=== PATIENT | female | born 1965 | race Caucasian/White ===

== ENCOUNTER → 2017-06-21 | Outpatient (CLI) | payer OTHER ==
[~2017-06-21] MED LIST: ALPR1TAB3 PO; BUPR300T PO; DESO1TAB5 PO; DESO1TAB7 PO; DOXY100C PO; FEXO15TA PO; FLON0.053; GLUC500T4 PO; HYDR-3580 PO; LAMO150T PO; LAMO200T PO; LEVO50TA4 PO; LEVO75TA3 PO; MONT10TA2 PO; MONT10TA4 PO; MULT-65 PO; SACC1CAP3 PO; TAB-TAB PO; TOPI1TAB36 PO; VIBRYD PO; VIIB20TA PO; WELLTAB39 PO
[2017-06-21 14:57] LABS: INTERNATIONAL NORMALIZED RATIO 0.9 RATIO; PROTHROMBIN TIME - PATIENT 10.2 SEC (9.8-11.6)
[2017-06-21 15:10] LABS: BICARBONATE 24.4 MEQ/L (21.0-32.0); POTASSIUM 4.2 MEQ/L (3.5-5.1)
--- NOTE | 2017-06-21 15:17 | RADRPT ---
EXAM DATE/TIME: 06/21/2017 14:57 [facility] COMPARISON: No previous studies available for comparison. INDICATIONS : Evaluate for pneumonia, pneumothorax or communicable disease. MEDICAL HISTORY : None. SURGICAL HISTORY : None. ENCOUNTER: Initial ACUITY: 1 day PAIN SCORE: 0/10 LOCATION: Bilateral chest FINDINGS: PA and lateral views of the chest demonstrate the lungs to be symmetrically aerated without evidence of mass, infiltrate or effusion. The cardiomediastinal contours are unremarkable. Osseous structure s are intact. CONCLUSION: No acute disease. Tony Freeman MD FACR on June 21, 2017 at 15:15 Board Certified Radiologist. This report was verified electronically.
[2017-06-21 15:48] LABS: BLOOD, URINE MOD (NEG); CALCIUM OXALATE CRYSTALS,URINE MOD /hpf; COMMENT (UR) CULT NOT INDICATED; CULTURE IF INDICATED CULT NOT INDICATED; GLUCOSE,URINE NEG (NEG); KETONE, URINE NEG (NEG); MUCUS URINE FEW /lpf (OCC); NITRITE,URINE NEG (NEG); PH, URINE 5.5 (5.0-8.5); SQUAMOUS EPITHELIAL CELL URINE 12 /hpf (0-5); URINE COLOR YELLOW (YELLW/STRAW)
--- NOTE | 2017-06-22 20:54 | EKG ---
Date Performed: 06/21/2017 Time Performed: 14:16:08 PTAGE: 52 years EKG: Sinus rhythm NORMAL ECG PREVIOUS TRACING : 07/01/2013 08.42 Compared to prior tracing no significant change DOCTOR: Reji De La Cruz Interpretating Date/Time 06/22/2017 20:52:58
== END ==
LOC: CPRE 13:38
PROVIDERS: ATTEND Orthopaedic Surgery
DX: Z01.810 Encounter for preprocedural cardiovascular examination (principal); Z01.811 Encounter for preprocedural respiratory examination; Z01.812 Encounter for preprocedural laboratory examination; S83.242D Other tear of medial meniscus, current injury, left knee, subsequent encounter; X58.XXXD Exposure to other specified factors, subsequent encounter
CPT/HCPCS: 36415; 71020; 80048; 81001; 85610; 93005

== ENCOUNTER → 2017-06-30 | Day surgery (SDC) | payer OTHER ==
--- NOTE | 2017-06-15 18:39 | MH ---
cc: CHANTAL WRIGHT DATE OF ADMISSION 06/30/2017 ADMISSION DIAGNOSIS 1. Medial meniscus tear of the left knee 2. Insufficiency fracture medial tibial plateau left knee 3. Chondromalacia left knee 4. Chondromalacia patellae left knee 5. Pain left knee, 6. Gait disturbance. HISTORY OF PRESENT ILLNESS The patient is a 52-year-old white female who has experienced pain of her left knee of almost six weeks duration. As a result of cleaning activities in anticipation of selling her home and scrubbing her floor, she became symptomatic with discomfort generalized about the lateral aspect of her left knee. She conformed to modified activities which included ice application, ibuprofen and elevation. Her symptoms became more pronounced for which she was evaluated in the emergency room of [facility] where a Doppler ultrasound study was negative for evidence of deep venous thrombosis. The patient was prescribed tramadol for pain management and placed into a knee immobilizer. She was also utilizing a cane for support. She was subsequently seen by the undersigned physician in the early part of May of this year and at that time reported ongoing pain about her left knee. She did report at that time that she had undergone arthroscopic surgery of her right knee in years past. Her overall clinical picture including x-ray studies were without evidence of any acute bony abnormality. The patient was diagnosed as having a tenosynovitis for which she was encouraged to continue with conservative management which included receiving a steroid injection and being prescribed a Medrol Dosepak. She was followed on an outpatient basis thereafter. Unfortunately, she remained symptomatic with pain about her left knee that was interfering with all weightbearing activities and, thus, she elected to proceed with further diagnostic evaluation which included an MRI scan the results of which identified a subchondral insufficiency fracture of the medial tibial plateau associated with a large radial tear involving the posterior horn of the medial meniscus, chondromalacia of the patellae and the medial femoral condyle was also noted, a benign exostosis originating from the posterior medial tibial plateau without any substantial cartilaginous cap or surrounding edema was also reported. The patient continued to have pain about her left knee that was limiting all ambulatory activities and requiring her to use a cane as a full-time ambulatory aid. She progressed to taking hydrocodone for pain management and expressed a desire to proceed with a more definitive course of treatment. The involvement of arthroscopic surgery was outlined in detail for which the patient expressed her desire to proceed accordingly and, in compliance with her wishes, she has currently been scheduled for admission in order that the above be accomplished. PAST MEDICAL HISTORY, HOSPITALIZATIONS AND SURGERIES 1. Excision of an ovarian cyst. 2. Arthroscopic surgery of the right knee x2 3. Bunionectomy of the left foot 4. Bilateral LASIK surgery of the eyes. Medical illnesses 1. Depression 2. Hypothyroidism. 3. Anxiety disorder. MEDICATIONS Current - 1. Princess daily. 2. Wellbutrin daily. 3. A control pill daily 4. daily. 5. Flonase 1 spray to each nostril nightly. 6. Topamax daily. 7. Vibryd daily. 8. Thyroid supplement daily. 9. Multivitamin tablet daily 10. Allergy shots every three weeks. ALLERGIES The patient denies any known drug allergies but has multiple environmental allergies to include CAT HAIR, DUST, TREES AND GRASS. REVIEW OF SYSTEMS History of migraine headaches. No seizure or syncope. Sinus congestion. No epistaxis. Auditory acuity intact. No tinnitus. No bleeding gums or dysphagia. Denies cough, shortness of breath, upper respiratory infection, pneumonia or tuberculosis. She has had history of bronchitis in the past. No angina or heart disease. Her appetite is good. Bowel movements are regular. No hepatitis, gallbladder disease, ulcers or hemorrhoids. She has had previous urinary tract infection. No kidney stones. Fracture of the little toe of the left foot treated non-operatively and psychiatric intervention for depression and anxiety disorder. Remaining review of systems is unremarkable and noncontributory. FAMILY HISTORY The patient is single. Both parents are living. Her mother is a diabetic. She has one brother of uncertain health. A sister who is noted to be an alcoholic and drug abuser. Family history is otherwise positive for hypertension, diabetes and brain cancer. SOCIAL HISTORY The patient completed a master's degree in education. She is a high school mathematics teacher. She admits to a 20-year history of tobacco averaging approximately one pack per week. Ethanol consumption on a very limited and social basis. PHYSICAL EXAMINATION VITAL SIGNS: Height 5 feet 10 inches, weight 297 pounds. GENERAL: An alert, oriented and responsive 52-year-old white female who sits quietly upon the examination table with no obvious distress. HEENT: Pupils are equally round and reactive to light. Extraocular movements full. Sclerae clear. External nares clear. External auditory canals clear. Dental intact. Mucous membranes pink and moist. Pharynx clear. NECK: Supple. Active range of motion without appreciable pain. Carotid palpable bilaterally. Trachea midline. Thyroid without enlargement. LUNGS: Clear to auscultation and percussion. No CVA tenderness. No discomfort throughout the dorsal lumbar spine. HEART: Regular rhythm. No murmur or gallop. ABDOMEN: Soft, nontender. Bowel sounds are present. PELVIC: Per primary care physician. EXTREMITIES: Left knee - There is medial and lateral joint line tenderness without palpable deformity. Apprehension and compression sign are negative. Limited and guarded mobility in the 0 to 30 degree range of motion with discomfort at the extremes of mobility. No sensation of crepitation or instability. No collateral ligamentous laxity. Catherine test and drawer sign negative. Pivot shift and Tim sign are difficult to assess secondary to apprehension demonstrated by the patient. Distal sensory grossly intact. Antalgic gait with cane support. NEUROLOGIC: Cranial nerves II-XII grossly intact. IMPRESSION 1. Medial meniscus tear left knee 2. Insufficiency fracture medial tibial plateau left knee 3. Chondromalacia left knee 4. Chondromalacia patellae left knee 5. Pain left knee 6. Gait disturbance. PLAN Arthroscopic surgery and possible arthrotomy left knee. The nature of the planned surgical procedure, the potential complications and risks associated, the expectations of surgery and the consent form were thoroughly reviewed with the patient prior to admission to the hospital. Asmita has indicated her full understanding regarding all of the above and given consent to proceed with treatment as outlined. Medical evaluation and clearance for surgery completed by her primary care physician, Dr. Stephanie Bryson. MD KARSTEN Cheatham/SA /5:44 PM /6:07 PM
[~2017-06-30] VITALS: Ht 179.1 cm; Wt 130.0 kg
[~2017-06-30] MED LIST changes: +*morphine SULFATE 8 MG/ML PERIprocedure ONLY ONE; +ACETAMINOPHEN 1000 MG/100 ML 100 ML IV ONE; +ACETAMINOPHEN/HYDROcodone 325 MG/5 MG TAB PO PRN; +CHLORHEXIDINE GLUCONATE 2 % 1 PACK (2 CLOTHS) TOPICAL PRN; -DESO1TAB7 PO; +FAMOTIDINE 20 MG/2 ML VIAL ONE; -FLON0.053; +GLYCOPYRROLATE 0.2 MG/ML VIAL IV ONE; +INSULIN HUMAN REGULAR 1,000 UNITS/10 ML VIAL SQ PRN; +KETOROLAC TROMETHAMINE 60 MG/2 ML (IM) VIAL IM ONE; +LACTATED RINGER'S 1000 ML INJ 1,000 ML IV ONE; +LACTATED RINGER'S 1000 ML IV PRN; -LAMO200T PO; -LEVO50TA4 PO; +LIDOCAINE 2%/EPINEPHrine PF 1:200,000 20ML SDV ONE; +LIDOCAINE HCL 1% PF 5 ML AMPULE OTHER ONE; +LIDOCAINE HCL 2% 50 ML VIAL ONE; +METOPROLOL TARTRATE 25 MG TAB PO PRN; +MIDAZOLAM HCL 2 MG/2 ML VIAL IV ONE; -MONT10TA2 PO; +MORPHINE SULFATE 10 MG/ML INJ IM PRN; +NEOSTIGMINE 3 MG/3 ML SYR IV ONE; +ONDANSETRON HCL 4 MG/2 ML VIAL IV PUSH ONE; +POVIDONE IODINE 5% (ANTISEPSIS KIT) 4 APPLICATIONS EACH NARE PRN; +POVIDONE IODINE 7.5% SCRUB 118 ML BOTTLE TOPICAL SCH; +PROMETHAZINE INJ 25 MG/ML VIAL IM PRN; +PROPOFOL 200 MG/20 ML AMP IV ONE; +ROCURONIUM INJ 50 MG/5 ML SYRINGE IV PUSH ONE; +SODIUM CHLORID 0.9% 500 ML IV PRN; -TAB-TAB PO; +TRIAMCINOLONE ACETONIDE 40 MG/ML VIAL ONE; +TRIAMCINOLONE ACETONIDE/PF 40 MG/ML OPTH VIAL ONE; -VIBRYD PO; -WELLTAB39 PO; +ceFAZolin 2 GM PREMIX 50 ML IV SCH
--- NOTE | 2017-06-30 09:37 | MP ---
cc: CHANTAL WRIGHT DATE OF SURGERY: 06/30/2017 PREOPERATIVE DIAGNOSIS Medial meniscus tear, left knee. Insufficiency fracture medial tibial plateau, left knee. Chondromalacia, left knee. Chondromalacia patellae, left knee. Pain, left knee. Gait disturbance. POSTOPERATIVE DIAGNOSIS Medial meniscus tear, left knee. Insufficiency fracture medial tibial plateau, left knee. Chondromalacia, left knee. Chondromalacia patellae, left knee. Pain, left knee. Gait disturbance. Synovial plica, left knee. PROCEDURE Partial medial meniscectomy, left knee. Resection of synovial plica, left knee. Chondroplasty of the patellofemoral joint, left knee. SURGEON Brandan. ANESTHESIA General endotracheal. FORMAT Following induction of satisfactory general anesthesia by endotracheal intubation as completed per the Department of Anesthesia, examination of the left knee revealed a satisfactory range of motion but no appreciable ligamentous instability. The extremity proper was positioned in the medical surgical tech knee echeverria, prepped with Betadine solution and draped into a sterile field in the routine manner. Prior to initiation of the actual procedure the standard timeout protocol was completed. All parameters were appropriately addressed and confirmed by operating room personnel. Arthroscopic instrumentation was introduced through a stab wound utilizing cannula with sharp and blunt trocar, the inflow irrigation by way of the medial suprapatellar portal, the arthroscope through a lateral parapatellar portal and a blunt probe through a medial parapatellar portal. Examination of the suprapatellar pouch revealed a prominent synovial plica extending across the entire border of the suprapatellar region in a medial to lateral orientation. Within the patellofemoral articulation mild to moderate degenerative changes consistent with chondromalacia were appreciated. Attention was redirected to the medial compartment. A radial tear was identified involving the posterior horn of the medial meniscus. There were adjacent chondromalacia changes along the articular surface, especially involving the femoral condyle. Proliferative synovium extended into the intercondylar region. The anterior cruciate ligament was identified and noted to be intact. Within the lateral compartment there was no significant evidence of internal derangement. The lateral meniscus appeared intact with continuity of the articular surfaces of both the femoral condyle and tibial plateau. Attention was redirected to the medial compartment. Utilizing both biting suction forceps as well as a 3.8 mm Saber resector, a partial medial meniscectomy was accomplished as well as debridement along the articular surface of the femoral condyle. Limited debridement within the intercondylar region was completed. Attention was thus redirected to the patellofemoral articulation and the suprapatellar region. The previously identified synovial plica was resected in a subtotal manner as well as a generalized chondroplasty of the patellofemoral articulation. Upon completion of same the joint space was thoroughly lavaged and suctioned dry. An intraarticular Kenalog-lidocaine injection was completed. Steri-Strips were applied to the portal sites over which Xeroform gauze and a bulky dry sterile dressing were placed. Anesthesia was discontinued and the patient thus transferred to a hospital stretcher and returned to the recovery room in satisfactory condition having tolerated her operative procedure well. Estimated blood loss was less than 10 cc. MD KARSTEN Cheatham/BT /8:47 AM /9:23 AM
[2017-06-30 10:10] VITALS: RESP 18; O2SAT 96
[2017-06-30 10:25] VITALS: BP 103/59
== END | disposition home or self-care (01) ==
LOC: HSDC 05:18
PROVIDERS: ATTEND Orthopaedic Surgery
DX: S83.242A Other tear of medial meniscus, current injury, left knee, initial encounter (principal); X58.XXXA Exposure to other specified factors, initial encounter; Y93.E5 Activity, floor mopping and cleaning; Y92.019 Unspecified place in single-family (private) house as the place of occurrence of the external cause; M94.262 Chondromalacia, left knee; M22.42 Chondromalacia patellae, left knee; M67.52 Plica syndrome, left knee; R26.9 Unspecified abnormalities of gait and mobility; F32.9 Major depressive disorder, single episode, unspecified; E03.9 Hypothyroidism, unspecified; F41.9 Anxiety disorder, unspecified; F17.210 Nicotine dependence, cigarettes, uncomplicated; E66.9 Obesity, unspecified; Z68.41 Body mass index [BMI] 40.0-44.9, adult; Z79.899 Other long term (current) drug therapy
CPT/HCPCS: 01400; 29875; 29881; J0131; J0690; J1885; J2250; J2270; J2405; J2710; J3010; J3300; J3301; J7120

== ENCOUNTER → 2017-10-17 | Outpatient (CLI) | payer OTHER ==
[~2017-10-17] MED LIST changes: -*morphine SULFATE 8 MG/ML PERIprocedure ONLY ONE; -ACETAMINOPHEN 1000 MG/100 ML 100 ML IV ONE; -ACETAMINOPHEN/HYDROcodone 325 MG/5 MG TAB PO PRN; +APIX5TAB PO; +ATOR80TA45 PO; -CHLORHEXIDINE GLUCONATE 2 % 1 PACK (2 CLOTHS) TOPICAL PRN; +DILT1TAB4 PO; -DOXY100C PO; -FAMOTIDINE 20 MG/2 ML VIAL ONE; -GLYCOPYRROLATE 0.2 MG/ML VIAL IV ONE; -INSULIN HUMAN REGULAR 1,000 UNITS/10 ML VIAL SQ PRN; -KETOROLAC TROMETHAMINE 60 MG/2 ML (IM) VIAL IM ONE; -LACTATED RINGER'S 1000 ML INJ 1,000 ML IV ONE; -LACTATED RINGER'S 1000 ML IV PRN; +LEVO200T4 PO; -LIDOCAINE 2%/EPINEPHrine PF 1:200,000 20ML SDV ONE; -LIDOCAINE HCL 1% PF 5 ML AMPULE OTHER ONE; -LIDOCAINE HCL 2% 50 ML VIAL ONE; -METOPROLOL TARTRATE 25 MG TAB PO PRN; -MIDAZOLAM HCL 2 MG/2 ML VIAL IV ONE; -MORPHINE SULFATE 10 MG/ML INJ IM PRN; -NEOSTIGMINE 3 MG/3 ML SYR IV ONE; -ONDANSETRON HCL 4 MG/2 ML VIAL IV PUSH ONE; -POVIDONE IODINE 5% (ANTISEPSIS KIT) 4 APPLICATIONS EACH NARE PRN; -POVIDONE IODINE 7.5% SCRUB 118 ML BOTTLE TOPICAL SCH; -PROMETHAZINE INJ 25 MG/ML VIAL IM PRN; -PROPOFOL 200 MG/20 ML AMP IV ONE; -ROCURONIUM INJ 50 MG/5 ML SYRINGE IV PUSH ONE; -SODIUM CHLORID 0.9% 500 ML IV PRN; -TOPI1TAB36 PO; +TOPI50TA7 PO; -TRIAMCINOLONE ACETONIDE 40 MG/ML VIAL ONE; -TRIAMCINOLONE ACETONIDE/PF 40 MG/ML OPTH VIAL ONE; -ceFAZolin 2 GM PREMIX 50 ML IV SCH
[2017-10-17 13:51] LABS: HEMATOCRIT 35.3 % (35.0-46.0); HEMOGLOBIN 12.1 GM/DL (11.6-15.3); MEAN CELL VOLUME 93.9 FL (80.0-100.0); MEAN CORPUSCULAR HEMOGLOBIN 32.2 PG (27.0-34.0); MEAN CORPUSCULAR HGB CONC 34.3 % (32.0-36.0); MEAN PLATELET VOLUME 7.4 FL (7.0-11.0); PLATELET COUNT 335 TH/MM3 (150-450); RED BLOOD COUNT 3.76 MIL/MM3 (4.00-5.30); RED CELL DISTRIBUTION WIDTH 13.2 % (11.6-17.2)
[2017-10-17 14:22] LABS: BILIRUBIN, URINE NEG (NEG); BLOOD, URINE LARGE (NEG); GLUCOSE,URINE NEG (NEG); KETONE, URINE 80 mg/dL (NEG); MUCUS URINE FEW /lpf (OCC); NITRITE,URINE NEG (NEG); SQUAMOUS EPITHELIAL CELL URINE 3 /hpf (0-5); URIC ACID CRYSTALS, URINE FEW /hpf; URINE COLOR YELLOW (YELLW/STRAW); URINE LEUKOCYTE ESTERASE TRACE (NEG)
--- NOTE | 2017-10-18 22:12 | EKG ---
Date Performed: 10/17/2017 Time Performed: 13:07:52 PTAGE: 52 years EKG: Sinus rhythm with 1st degree A-V block. Low QRS voltages in precordial leads Abnormal ECG PREVIOUS TRACING : 06/21/2017 14.16 Compared to prior tracing no significant change DOCTOR: Payal Anderson Interpretating Date/Time 10/18/2017 22:11:17
== END ==
LOC: CPRE 12:42
PROVIDERS: ATTEND Obstetrics & Gynecology
DX: Z01.812 Encounter for preprocedural laboratory examination (principal); Z01.810 Encounter for preprocedural cardiovascular examination; N92.3 Ovulation bleeding; N88.1 Old laceration of cervix uteri
CPT/HCPCS: 36415; 81001; 84702; 85027; 93005

== ENCOUNTER → 2017-10-18 | Day surgery (SDC) | payer OTHER ==
[~2017-10-18] VITALS: Ht 177.8 cm; Wt 124.1 kg
[~2017-10-18] MED LIST changes: +*Lactated Ringer's INJ 1,000 ML IV ONE; +ACETAMINOPHEN 1000 MG/100 ML 100 ML IV SCH; +CHLORHEXIDINE GLUCONATE 2 % 1 PACK (2 CLOTHS) TOPICAL PRN; +DEXAMETHASONE SOD PHOS 4 MG/ML VIAL IV PUSH ONE; +DO NOT ADM ANY ANTICOAGULANT DRUGS PRN; +KETOROLAC TROMETHAMINE 30 MG/ML (IVP) VIAL IV PUSH ONE; +LACTATED RINGER'S 1000 ML IV PRN; +LIDOCAINE HCL 1% PF 5 ML SYRINGE OTHER ONE; +METOCLOPRAMIDE HCL 10 MG/2 ML VIAL IV PUSH PRN; +METOPROLOL TARTRATE 25 MG TAB PO PRN; +MIDAZOLAM HCL 2 MG/2 ML VIAL ONE; +ONDANSETRON HCL 4 MG/2 ML VIAL IV PUSH ONE; +POVIDONE IODINE 5% (ANTISEPSIS KIT) 4 APPLICATIONS EACH NARE PRN; +PROPOFOL 200 MG/20 ML AMP IV ONE; +SODIUM CHLORID 0.9% 500 ML IV PRN; +oxyCODONE/ACETAMINOPHEN 10 MG/325 MG TAB PO PRN
--- NOTE | 2017-10-18 12:01 | MH ---
cc: NATASHA WU DATE OF ADMISSION: 10/18/2017 DATE OF 1965 ADMISSION DIAGNOSIS Perimenopausal menorrhagia. HISTORY OF PRESENT ILLNESS The patient is a 52-year-old single white female, para 0 has been utilizing OCPs for menstrual control. She had knee surgery June of 2017 and had a small CVA postop and had to stop her OCPs. She began bleeding heavily on 07/13/2017 and has continued since that time. Her vaginal ultrasound was normal. Hemoglobin is stable. She was initially given Provera which stopped her bleeding and then she began bleeding heavily again on 09/2017. Her bellows filler authorized restarting OCPs which was on 10/13/2017 but she continued to bleed heavily and is now admitted for D&C. PAST MEDICAL HISTORY Previous surgery includes: 1. . 2. Right ovarian cyst by laparotomy. 3. 1991 right knee arthroscopy. 4. Knee surgery in June of 2017. 5. LEEP procedure 1996 for TERESA II. MEDICATIONS Include: 1. Diltiazem. 2. Eliquis. 3. Atorvastatin. 4. Levothyroxine. 5. Buspirone. 6. Montelukast. 7. Lamotrigine. 8. Viibryd. 9. Topiramate. 10. Princess. 11. Vitamins. 12. Glucosamine chondroitin. 13. Alprazolam. ALLERGIES CHLORINE. TRANSFUSIONS None. OB HISTORY None. 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 Alcohol occasional. Tobacco none. Drugs none. PHYSICAL EXAMINATION GENERAL: A well-nourished, well-developed white female. VITAL SIGNS: Stable. HEENT: Exam is normal. CHEST: Clear. HEART: Regular rate. BREASTS: Symmetrical. ABDOMEN: Benign. PELVIC: Normal external genitalia and Bartholin's, urethral, and Udall's. Vagina is normal. Cervix normal. Uterus normal size, shape, anterior. No adnexal masses. ASSESSMENT Menorrhagia, perimenopausal. PLAN She is now admitted for hysteroscopy D&C. While in the office I explained the procedures, the risks, benefit and complications and possible need for later treatment. She would like to proceed. MD MARY Coles/ALECIA /3:38 PM /11:39 AM MTDAly
[2017-10-18] MEDS: ceFAZolin 1,000 MG/NS 100 ML IV SCH ×4 (15:10→16:07)
[2017-10-18 17:05] VITALS: BP 134/81; PULSE 59; RESP 16; TEMP 97; O2SAT 99
--- NOTE | 2017-10-19 08:12 | MP ---
cc: NATASHA WU DATE OF SURGERY 10/18/2017 PREOPERATIVE DIAGNOSIS Menorrhagia. POSTOPERATIVE DIAGNOSIS Menorrhagia. PROCEDURE Hysteroscopy, D&C. ANESTHESIA General LMA. ESTIMATED BLOOD LOSS About 20 cc. FLUIDS 800 cc crystalloid. OBJECTIVE FINDINGS Following the induction of adequate general LMA anesthesia, the patient was prepped and draped supine on the operating table in the dorsal lithotomy position in the usual sterile fashion with the bladder being drained via in and out catheterization. Exam under anesthesia revealed a normal sized and shaped anterior uterus. No adnexal masses. A heavy weighted speculum was placed in the posterior fornix of the vagina, the anterior lip of the cervix grasped with a single-tooth tenaculum. The cervix and uterus sounded to 8 cm. The cervix was dilated to a #18 Hanks dilator. The hysteroscope was passed, revealed normal cervix, endometrium with multiple clots. The scope was now withdrawn. Endocervical curettings were obtained with a serrated curet, the endometrium with a small, sharp curet. Polyp forceps was passed to pickle water pump operator loose tissue and debris. The cervical tenaculum site was sutured with 3-0 chromic for hemostasis. All instruments were removed. All counts were correct. The patient's legs were taken down from the stirrups. She was awakened and taken to the recovery room in good condition. MD MARY Coles/SANNA /3:48 PM /7:51 AM
== END | disposition home or self-care (01) ==
LOC: HSDC 13:24
PROVIDERS: ATTEND Obstetrics & Gynecology
DX: N92.4 Excessive bleeding in the premenopausal period (principal); N88.1 Old laceration of cervix uteri
CPT/HCPCS: 00952; 58558; 88305; J0690; J1100; J1885; J2250; J2405; J3010; J7120

== ENCOUNTER → 2017-12-19 | Outpatient (CLI) | payer OTHER ==
[~2017-12-19] MED LIST changes: -*Lactated Ringer's INJ 1,000 ML IV ONE; -ACETAMINOPHEN 1000 MG/100 ML 100 ML IV SCH; -CHLORHEXIDINE GLUCONATE 2 % 1 PACK (2 CLOTHS) TOPICAL PRN; -DEXAMETHASONE SOD PHOS 4 MG/ML VIAL IV PUSH ONE; -DO NOT ADM ANY ANTICOAGULANT DRUGS PRN; -HYDR-3580 PO; -KETOROLAC TROMETHAMINE 30 MG/ML (IVP) VIAL IV PUSH ONE; -LACTATED RINGER'S 1000 ML IV PRN; -LEVO75TA3 PO; -LIDOCAINE HCL 1% PF 5 ML SYRINGE OTHER ONE; -METOCLOPRAMIDE HCL 10 MG/2 ML VIAL IV PUSH PRN; -METOPROLOL TARTRATE 25 MG TAB PO PRN; -MIDAZOLAM HCL 2 MG/2 ML VIAL ONE; -ONDANSETRON HCL 4 MG/2 ML VIAL IV PUSH ONE; -POVIDONE IODINE 5% (ANTISEPSIS KIT) 4 APPLICATIONS EACH NARE PRN; -PROPOFOL 200 MG/20 ML AMP IV ONE; -SACC1CAP3 PO; -SODIUM CHLORID 0.9% 500 ML IV PRN; -oxyCODONE/ACETAMINOPHEN 10 MG/325 MG TAB PO PRN
[2017-12-19 13:39] LABS: AUTOMATED NEUTROPHIL # 4.6 TH/MM3 (1.8-7.7); BASOPHIL # 0.1 TH/MM3 (0-0.2); BASOPHIL % 0.9 % (0.0-2.0); EOSINOPHIL # 0.2 TH/MM3 (0-0.4); EOSINOPHIL % 2.2 % (0.0-4.0); HEMOGLOBIN 11.1 GM/DL (11.6-15.3); LYMPH % 28.7 % (9.0-44.0); LYMPHOCYTE # 2.2 TH/MM3 (1.0-4.8); MEAN CELL VOLUME 85.5 FL (80.0-100.0); MEAN CORPUSCULAR HEMOGLOBIN 28.8 PG (27.0-34.0); MEAN CORPUSCULAR HGB CONC 33.7 % (32.0-36.0); MEAN PLATELET VOLUME 7.2 FL (7.0-11.0); MONO % 7.1 % (0.0-8.0); MONOCYTE # 0.5 TH/MM3 (0-0.9); NEUT % 61.1 % (16.0-70.0); PLATELET COUNT 360 TH/MM3 (150-450); RED BLOOD COUNT 3.85 MIL/MM3 (4.00-5.30); RED CELL DISTRIBUTION WIDTH 14.3 % (11.6-17.2); WHITE BLOOD COUNT 7.6 TH/MM3 (4.0-11.0)
[2017-12-19 13:43] LABS: BILIRUBIN, URINE NEG (NEG); BLOOD, URINE NEG (NEG); CALCIUM OXALATE CRYSTALS,URINE MANY /hpf; GLUCOSE,URINE NEG (NEG); KETONE, URINE 10 mg/dL (NEG); MUCUS URINE MOD /lpf (OCC); NITRITE,URINE NEG (NEG); PH, URINE 5.5 (5.0-8.5); SQUAMOUS EPITHELIAL CELL URINE 2 /hpf (0-5); TRANSITIONAL EPI CELLS, URINE <1 /hpf; URINE COLOR YELLOW (YELLW/STRAW); URINE LEUKOCYTE ESTERASE NEG (NEG)
--- NOTE | 2017-12-22 07:04 | MH ---
cc: Carlitos Hartmann MD DATE OF ADMISSION: 12/22/2017 ADMITTING DIAGNOSIS: Perimenopausal menorrhagia. HISTORY OF PRESENT ILLNESS: This is a 52-year-old single white female, para 0, has had recurrent menorrhagia. She had a hysteroscope, D and C procedure on 10/18/2017, has failed to respond to hormonal therapy. PAST MEDICAL HISTORY: She had knee surgery in June 2017 ,had a small CVA postop. Had stopped her OCPs. ADDITIONAL PAST SURGICAL HISTORY: Include a right ovarian cyst via laparotomy in 1986. In 1991, she had a right arthroscopy to her knee and the knee surgery in 2016, right side, LEEP procedure in 1996 x 2. MEDICATIONS: Vitamins and the , Eliquis, atorvastatin, levothyroxine, Buspirone, montelukast, lamotrigine, Viibryd, topiramate, glucosamine alprazolam. ALLERGIES: CHLORINE. TRANSFUSIONS: None. OBSTETRIC HISTORY: None. REVIEW OF SYSTEMS: Negative. 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 Alcohol, tobacco and drugs are none. PHYSICAL EXAMINATION: GENERAL: Well-nourished, well-developed white female. VITAL SIGNS: Stable. HEENT: Normal. CHEST: Clear. HEART: Regular rate. BREASTS: Are symmetrical. ABDOMEN: Benign. PELVIC: External genitalia BUF. Vagina is normal. Cervix normal. Uterus is normal size, shape, anterior. No adnexal masses. ASSESSMENT AND PLAN: As above. She is now admitted for a NovaSure ablation. While in the office, I explained the procedures, the risks and complications. The patient would like to proceed. MD MARY Coles/GISSELLE , 05:15 PM , 05:51 PM
== END ==
LOC: CPRE 13:01
PROVIDERS: ATTEND Obstetrics & Gynecology
DX: Z01.812 Encounter for preprocedural laboratory examination (principal); N92.4 Excessive bleeding in the premenopausal period
CPT/HCPCS: 36415; 81001; 84702; 85025

== ENCOUNTER → 2017-12-22 | Day surgery (SDC) | payer OTHER ==
[~2017-12-22] VITALS: Ht 177.8 cm; Wt 114.9 kg
[~2017-12-22] MED LIST changes: +ACETAMINOPHEN 1000 MG/100 ML 100 ML IV ONE; +CHLORHEXIDINE GLUCONATE 2 % 1 PACK (2 CLOTHS) TOPICAL PRN; +DEXAMETHASONE SOD PHOS 4 MG/ML VIAL IV ONE; +DEXMEDETOMIDINE HCL 200 MCG/2 ML VIAL ONE; +DO NOT ADM ANY ANTICOAGULANT DRUGS PRN; +FAMOTIDINE 20 MG/2 ML VIAL ONE; +KETOROLAC TROMETHAMINE 30 MG/ML (IVP) VIAL IV PUSH ONE; +LACTATED RINGER'S 1000 ML IV PRN; +LIDOCAINE HCL 1% PF 5 ML SYRINGE OTHER ONE; +METOCLOPRAMIDE HCL 10 MG/2 ML VIAL IV PRN; +METOPROLOL TARTRATE 25 MG TAB PO PRN; +MIDAZOLAM HCL 2 MG/2 ML VIAL ONE; +ONDANSETRON HCL 4 MG/2 ML VIAL IV ONE; +POVIDONE IODINE 5% (ANTISEPSIS KIT) 4 APPLICATIONS EACH NARE PRN; +PROPOFOL 200 MG/20 ML AMP IV ONE; +SODIUM CHLORID 0.9% 500 ML IV PRN; +SODIUM CHLORIDE 0.9% 20 ML VIAL IV ONE; +ceFAZolin 1,000 MG/NS 100 ML IV SCH; +oxyCODONE/ACETAMINOPHEN 5 MG/325 MG TAB PO PRN
--- NOTE | 2017-12-22 08:19 | MP ---
cc: Carlitos Hartmann MD DATE OF OPERATION: 12/22/2017 PREOPERATIVE DIAGNOSIS: Menorrhagia. POSTOPERATIVE DIAGNOSIS: Menorrhagia. PROCEDURE: NovaSure ablation with hysteroscopy. ANESTHESIA: General LMA. ESTIMATED BLOOD LOSS: About 20 mL. FLUIDS: Half liter crystalloid. OBJECTIVE FINDINGS: Following induction of adequate general LMA anesthesia, the patient was prepped and draped supine on the operating table in dorsal lithotomy position usual fashion with the bladder being no catheterization. Exam under anesthesia, normal size, shape and uterus. No adnexal masses. Heavy weighted speculum was placed on the posterior fornix of the vagina. The anterior lip of the cervix grasped with single-tooth tenaculum. Cervix sounded to 2.5 cm int. os 8 cm to the fundus. Cervix is dilated to #18 Hanks dilator. The NovaSure wand was deployed for a cavity length of 5.5 cm, cavity width of 2.5 cm. The device then enabled, operating time 43 seconds. NovaSure wand removed intact. Hysteroscope passed, revealed excellent response. The cervical tenaculum sites were sutured with 3-0 chromic, hemostasis. All instruments removed. All counts correct. The patient's legs taken out of stirrups. She was awakened and taken to the recovery room in good condition. MD MARY Coles/MARTIR , 08:03 AM , 08:17 AM [facility]
[2017-12-22 09:29] VITALS: BP 97/64; PULSE 58; RESP 20; TEMP 98; O2SAT 100
== END | disposition home or self-care (01) ==
LOC: HSDC 05:30
PROVIDERS: ATTEND Obstetrics & Gynecology
DX: N92.0 Excessive and frequent menstruation with regular cycle (principal); E03.9 Hypothyroidism, unspecified; I48.92 Unspecified atrial flutter
CPT/HCPCS: 00952; 58563; J0131; J0690; J1100; J1885; J2250; J2405; J3010; J7120